=== PATIENT | male | born 1950 ===

== ENCOUNTER 2023-03-17 11:01 | Outpatient (AMB) | payer MEDICARE, SELFPAY ==
--- NOTE | 2023-03-17 11:34 | HO.NEPHOV ---
HPI HPI Comments History of Present Illness Details Renzo was seen in the office in follow-up of his chronic kidney disease and hypertension. His blood sugar control is better. He is not gaining any weight. He is on Farxiga. He had 2 episodes of pinkness in his ejaculate in a span of few weeks, few months ago. His blood pressure has been at goal. He denies any chest pain, shortness of breath, nausea, vomiting or diarrhea, proximal nocturnal dyspnea, orthopnea, pedal edema, headache, visual disturbance or orthostatic symptoms. His compliant with his medications. He is regularly followed up with his PCP. COUNT INCLUDES [facility] Medical History (Updated 03/17/23 @ 12:23 by Santi Gil MD) Essential (primary) hypertension Chronic kidney disease, stage 3a Surgical History (Updated 03/17/23 @ 11:43 by Graciela Sheppard MA) History of hernia repair Family History (Updated 03/17/23 @ 11:44 by Graciela Sheppard MA) Father Heart disease Brother Heart disease Sister Diabetes (Updated 03/17/23 @ 11:43 by Graciela Sheppard MA) Alcohol intake: current Patient Tobacco Use Status: Current someday Tobacco user Tobacco use type: Cigar Vital Signs 03/17/23 11:36 Height 5 ft 10 in Weight 232 lb 4 oz BMI 33.3 BP 110/78 Blood Pressure Location Lt brachial Position Sitting Pulse 62 Pulse Source Pulse Oximeter Physical Exam Vital Signs: Last Vital Signs Pulse 62 03/17/23 11:36 BP 110/78 03/17/23 11:36 BMI result Body Mass Index 33.3 Const General: comfortable and no acute distress Orientation/consciousness: patient oriented x3 HEENT Head: Yes normocephalic Mouth: Normal oral and palatal mucosa present Eyes EOM: EOMs intact bilaterally Neck Neck: Yes supple Resp Auscultation: clear to auscultation bilaterally Cardio Jugular venous distension: no JVD Rate: regular rate GI Palpation (GI): Soft to palpation Auscultation: normal bowel sounds General: Yes no CVA tenderness Back/Spine/Pelvis Back: no CVA tenderness Skin General skin exam: no rashes or lesions noted Neuro General: patient oriented x3 and moves all extremities Extrem General: Yes no pedal edema Assessment & Plan Assessment & Plan (1) Chronic kidney disease, stage 3a: Code(s): N18.31 - Chronic kidney disease, stage 3a (2) Essential (primary) hypertension: Code(s): I10 - Essential (primary) hypertension Plan Renzo has CKD for long time but his renal functions had been pretty stable. His blood pressure is at goal. His blood sugar is better controlled. He is on Farxiga. He had history of hyperkalemia which had been resolved. He tries to avoid nonsteroidal and anti-inflammatory medications. He tries to hydrate himself well. He most likely needs a urology consult. Lab studies were ordered. I did not make any medication changes today. All his questions and concerns were addressed. Time spend for documentation, retrieval of data and patient encounter 28 minutes. Orders: Orders Protein Creatinine Ratio, Ur 03/17/23 I10 - Essential (primary) hypertension, N18.31 - Chronic kidney disease, stage 3a UA and rflx microscopic 03/17/23 I10 - Essential (primary) hypertension, N18.31 - Chronic kidney disease, stage 3a Electrolytes 03/17/23 I10 - Essential (primary) hypertension, N18.31 - Chronic kidney disease, stage 3a Blood Urea Nitrogen 03/17/23 I10 - Essential (primary) hypertension, N18.31 - Chronic kidney disease, stage 3a Creatinine 03/17/23 I10 - Essential (primary) hypertension, N18.31 - Chronic kidney disease, stage 3a Calcium 03/17/23 I10 - Essential (primary) hypertension, N18.31 - Chronic kidney disease, stage 3a PSA, Ultra Sensitive 03/17/23 I10 - Essential (primary) hypertension, N18.31 - Chronic kidney disease, stage 3a Coding Level of Care Code Est Pt Level 4 (19505) Diagnoses Chronic kidney disease, stage 3a N18.31 Essential (primary) hypertension I10
[2023-03-17 11:36] VITALS: BP 110/78; PULSE 62; BMI 33.3
== END 2023-03-17 12:38 | disposition home or self-care (01) ==
PROVIDERS: PCP Internal Medicine; Visit Provider Internal Medicine Nephrology
DX: I12.9 Hypertensive chronic kidney disease with stage 1 through stage 4 chronic kidney disease, or unspecified chronic kidney disease (principal); N18.31 Chronic kidney disease, stage 3a; Z79.84 Long term (current) use of oral hypoglycemic drugs
CPT/HCPCS: 99214

== ENCOUNTER → 2023-03-17 11:01 | Outpatient (BNVA) | payer MEDICARE, SELFPAY | PROVIDERS: PCP Internal Medicine; Visit Provider Internal Medicine Nephrology | DX: I12.9 Hypertensive chronic kidney disease with stage 1 through stage 4 chronic kidney disease, or unspecified chronic kidney disease (principal); N18.31 Chronic kidney disease, stage 3a | CPT/HCPCS: 99212 ==

== ENCOUNTER 2023-05-05 10:20 | Outpatient (AMB) | payer MEDICARE, SELFPAY ==
[2023-05-05 10:34] VITALS: BP 126/80; PULSE 56; O2SAT 98; BMI 33.3
--- NOTE | 2023-05-05 10:34 | HO.NEPHOV_ITS ---
HPI HPI Comments History of Present Illness Details Renzo was seen in the office in follow-up of his chronic kidney disease and hypertension. His blood sugar control is better. He is not gaining any weight. He is on Farxiga. He had 2 episodes of pinkness in his ejaculate in a span of few weeks, few months ago. His blood pressure has been at goal. He denies any chest pain, shortness of breath, nausea, vomiting or diarrhea, proximal nocturnal dyspnea, orthopnea, pedal edema, headache, visual disturbance or orthostatic symptoms. His compliant with his medications. He is regularly followed up with his PCP [facility] Medical History (Updated 05/05/23 @ 14:54 by Santi Gil MD) Essential (primary) hypertension Chronic kidney disease, stage 3a Surgical History History of hernia repair Family History Father Heart disease Brother Heart disease Sister Diabetes Social History Alcohol intake: current Patient Tobacco Use Status: Current someday Tobacco user Tobacco use type: Cigar Vital Signs 05/05/23 10:34 Height 5 ft 10 in Weight 232 lb 2 oz BMI 33.3 BP 126/80 Blood Pressure Location Lt brachial Position Sitting Pulse 56 Pulse Source Pulse Oximeter Pulse Oximetry (%) 98 Oxygen Delivery Method Room Air Physical Exam Vital Signs: Last Vital Signs Pulse 56 05/05/23 10:34 BP 126/80 05/05/23 10:34 Pulse Ox 98 05/05/23 10:34 Oxygen Delivery Method Room Air 05/05/23 10:34 BMI result Body Mass Index 33.3 Const General: comfortable and no acute distress Orientation/consciousness: patient oriented x3 HEENT Head: Yes normocephalic Mouth: Normal oral and palatal mucosa present Eyes EOM: EOMs intact bilaterally Neck Neck: Yes supple Resp Auscultation: clear to auscultation bilaterally Cardio Jugular venous distension: no JVD Rate: regular rate GI Palpation (GI): Soft to palpation Auscultation: normal bowel sounds General: Yes no CVA tenderness Back/Spine/Pelvis Back: no CVA tenderness Skin General skin exam: no rashes or lesions noted Neuro General: patient oriented x3 and moves all extremities Extrem General: Yes no pedal edema Assessment & Plan Assessment & Plan (1) Chronic kidney disease, stage 3a: Code(s): N18.31 - Chronic kidney disease, stage 3a (2) Essential (primary) hypertension: Code(s): I10 - Essential (primary) hypertension (3) Blood in semen: Code(s): R36.1 - Hematospermia Plan Renzo has CKD for long time but his renal functions had been pretty stable. His blood pressure is at goal. His blood sugar is better controlled. He is on Farxiga. He had history of hyperkalemia which had been resolved. He tries to avoid nonsteroidal and anti-inflammatory medications. He tries to hydrate himself well. I took the liberty to order a urology consult. Lab studies were ordered. I did not make any medication changes today. All his questions and concerns were addressed. Orders: Orders Creatinine Today I10 - Essential (primary) hypertension, N18.31 - Chronic kidney disease, stage 3a Blood Urea Nitrogen Today I10 - Essential (primary) hypertension, N18.31 - Chronic kidney disease, stage 3a Electrolytes Today I10 - Essential (primary) hypertension, N18.31 - Chronic kidney disease, stage 3a Referrals Urology Referral R36.1 - Hematospermia Coding Level of Care Code Est Pt Level 3 (14335) Diagnoses Chronic kidney disease, stage 3a N18.31 Essential (primary) hypertension I10 Blood in semen R36.1 Results Reviewed Nephrology Results: No Data to Display
== END 2023-05-05 10:58 | disposition home or self-care (01) ==
PROVIDERS: PCP Internal Medicine; Visit Provider Internal Medicine Nephrology
DX: N18.31 Chronic kidney disease, stage 3a (principal); I10 Essential (primary) hypertension; R36.1 Hematospermia
CPT/HCPCS: 99213

== ENCOUNTER → 2023-05-05 10:20 | Outpatient (BNVA) | payer MEDICARE, SELFPAY | PROVIDERS: PCP Internal Medicine; Visit Provider Internal Medicine Nephrology | DX: I12.9 Hypertensive chronic kidney disease with stage 1 through stage 4 chronic kidney disease, or unspecified chronic kidney disease (principal); N18.31 Chronic kidney disease, stage 3a; R36.1 Hematospermia | CPT/HCPCS: 99212 ==

== ENCOUNTER 2023-07-22 10:07 | Outpatient (AMB) | payer MEDICARE, SELFPAY ==
--- NOTE | 2023-07-22 10:32 | A.OFFVIS_ITS ---
Intake Intake Visit Reasons: Hematospermia Intake Note: NEW Patient presents today to established treatment for hematospermia Meds- None Allergies to Antibiotic- No Known Allergies Blood Thinner- None Grain Receiver Required: No Accompanied by: Self / Same As Patient Allergies No Known Allergies Allergy (Verified 07/22/23 10:40) HPI HPI Comments History of Present Illness Details Hemanth is a pleasant male. He is a patient of . He is seen for the following urologic conditions - hematospermia Hematospermia occurred on 3 occasions Referred from Nephrology Urine noted 3+ glucose consistent with SGLT2 Discussed self-limiting nature of hematospermia Reassurance provided No voiding symptoms described [facility] Medical History Essential (primary) hypertension Chronic kidney disease, stage 3a Surgical History History of hernia repair Family History Father Heart disease Brother Heart disease Sister Diabetes Social History Alcohol intake: current Patient Tobacco Use Status: Current someday Tobacco user Tobacco use type: Cigar Review of Systems Const Denies chills and Denies fever(s) Card Reports no additional complaints and Denies syncope Resp Denies cough GI Denies abdominal pain and Denies heartburn Reports as per HPI and Denies change in libido Neuro Denies syncope Psych Denies change in libido Endo Denies change in libido Physical Exam Const General: cooperative, healthy appearing, comfortable and no acute distress Orientation/consciousness: patient oriented x3 HEENT Face and sinus: Yes normal facial exam Mouth: moist mucous membranes Neck Neck: Yes normal visual inspection, Yes full ROM and Yes trachea midline Chest Chest palpation & inspection: normal inspection of the chest Resp Effort & Inspection: normal respiratory effort, able to speak in complete sentences and no respiratory distress GI Inspection: Yes normal to inspection Back/Spine/Pelvis Cervical Spine: normal cervical lordosis Thoracic/Lumbar Spine: thoracic and lumbar spine normal to inspection Skin General skin exam: no rashes or lesions noted Neuro General: patient oriented x3, gait normal, tone normal and moves all extremities Extrem General: Yes normal to inspection and Yes capillary refill normal Assessment & Plan Assessment & Plan (1) Blood in semen: Code(s): R36.1 - Hematospermia Plan Reassurance provided Patient Instructions: Imaging studies, laboratory and physical exam results were discussed and reviewe d in detail. No major barriers to patient understanding were identified. An opportunity to ask questions regarding the treatment plan was provided. All questions were answered. The patient expressed understanding and agreement with the above treatment plan. The patient is aware they should contact our office by phone for worsening of their current condition or the appearance of new urologic symptoms. Compliance is encouraged with any medications and followup testing that is ordered. It is a privilege to participate in the urologic care of your patient. If you have any questions or concerns regarding treatment for the above conditions, or other urologic issues, please do not hesitate to contact me. The office telephone contact is [phone]. This note is constructed using voice recognition software. While every effort has been made to ensure accuracy supervisor endless track vehicle errors may have been included. Yours sincerely, Dr Magdiel Isaac MD, [facility] - Urology Providers of Expert, Compassionate Care for the Genitourinary System Coding Level of Care Code New Pt Level 3 (26590) Diagnoses Blood in semen R36.1
== END 2023-07-22 11:21 | disposition home or self-care (01) ==
PROVIDERS: PCP Internal Medicine; Visit Provider Urology
DX: R36.1 Hematospermia (principal)
CPT/HCPCS: 99203

== ENCOUNTER → 2023-07-22 10:07 | Outpatient (BNVA) | payer MEDICARE, SELFPAY | PROVIDERS: PCP Internal Medicine; Visit Provider Urology | DX: R36.1 Hematospermia (principal) | CPT/HCPCS: 99202 ==

== ENCOUNTER 2023-11-10 10:00 | Outpatient (AMB) | payer MEDICARE, SELFPAY ==
[2023-11-10 10:31] VITALS: BP 102/62; PULSE 64; O2SAT 94; BMI 32.6
--- NOTE | 2023-11-10 10:31 | HO.NEPHOV_ITS ---
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 His blood sugar control is better. He is on Farxiga. He has had 2 episodes of pinkness in his ejaculate in a span of few weeks, few months ago. His blood pressure has been at goal. He denies any chest pain, shortness of breath, nausea, vomiting or diarrhea, proximal nocturnal dyspnea, orthopnea, pedal edema, headache, visual disturbance or orthostatic symptoms. His compliant with his medications. He is regularly followed up with his PCP [facility] Medical History Essential (primary) hypertension Chronic kidney disease, stage 3a Surgical History History of hernia repair Family History Father Heart disease Brother Heart disease Sister Diabetes Social History Alcohol intake: current Patient Tobacco Use Status: Current someday Tobacco user Tobacco use type: Cigar Physical Exam Vital Signs: Last Vital Signs Pulse 64 11/10/23 10:31 BP 102/62 11/10/23 10:31 Pulse Ox 94 11/10/23 10:31 Oxygen Delivery Method Room Air 11/10/23 10:31 BMI result Body Mass Index 32.6 Const General: comfortable and no acute distress Orientation/consciousness: patient oriented x3 HEENT Head: Yes normocephalic Mouth: Normal oral and palatal mucosa present Eyes EOM: EOMs intact bilaterally Neck Neck: Yes supple Resp Auscultation: clear to auscultation bilaterally Cardio Jugular venous distension: no JVD Rate: regular rate GI Palpation (GI): Soft to palpation Auscultation: normal bowel sounds General: Yes no CVA tenderness Back/Spine/Pelvis Back: no CVA tenderness Skin General skin exam: no rashes or lesions noted Neuro General: patient oriented x3 and moves all extremities Extrem General: Yes no pedal edema Results Reviewed Nephrology Results: No Data to Display Assessment & Plan Assessment & Plan (1) Chronic kidney disease, stage 3a: Code(s): N18.31 - Chronic kidney disease, stage 3a Category: Medical (2) Essential (primary) hypertension: Code(s): I10 - Essential (primary) hypertension Category: Medical Plan Renzo has CKD for long time but his renal functions had been pretty stable. His blood pressure is at goal. His blood sugar is better controlled. He is on Farxiga. He had history of hyperkalemia which had been resolved. He tries to avoid nonsteroidal and anti-inflammatory medications. He tries to hydrate himself well. I discontinued HCTZ. I may cut back on losartan at next visit.( serum creatinine marginally gone up). Lab studies were ordered. I did not make any other medication changes today. All his questions and concerns were addressed. Orders: Orders Blood Urea Nitrogen Today I10 - Essential (primary) hypertension, N18.31 - Chronic kidney disease, stage 3a Electrolytes Today I10 - Essential (primary) hypertension, N18.31 - Chronic kidney disease, stage 3a Creatinine Today I10 - Essential (primary) hypertension, N18.31 - Chronic kidney disease, stage 3a Coding Level of Care Code Est Pt Level 4 (22948) Diagnoses Chronic kidney disease, stage 3a N18.31 Essential (primary) hypertension I10
== END 2023-11-10 10:55 | disposition home or self-care (01) ==
PROVIDERS: PCP Internal Medicine; Visit Provider Internal Medicine Nephrology
DX: N18.31 Chronic kidney disease, stage 3a (principal); I10 Essential (primary) hypertension
CPT/HCPCS: 99214

== ENCOUNTER → 2023-11-10 10:00 | Outpatient (BNVA) | payer MEDICARE, SELFPAY | PROVIDERS: PCP Internal Medicine; Visit Provider Internal Medicine Nephrology | DX: I12.9 Hypertensive chronic kidney disease with stage 1 through stage 4 chronic kidney disease, or unspecified chronic kidney disease (principal); N18.31 Chronic kidney disease, stage 3a | CPT/HCPCS: 99212 ==

== ENCOUNTER 2024-01-07 14:03 | Outpatient (AMB) | payer MEDICARE, SELFPAY ==
--- NOTE | 2024-01-07 14:05 | HO.NEPHOV_ITS ---
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 His blood sugar control is better. His blood pressure has been at goal but on the lower side after he lost a lot of weight. He denies any chest pain, shortness of breath, nausea, vomiting or diarrhea, proximal nocturnal dyspnea, orthopnea, pedal edema, headache, visual disturbance or orthostatic symptoms. His compliant with his medications. He is regularly followed up with his PCP [facility] Medical History Essential (primary) hypertension Chronic kidney disease, stage 3a Surgical History History of hernia repair Family History Father Heart disease Brother Heart disease Sister Diabetes Social History Alcohol intake: current Patient Tobacco Use Status: Current someday Tobacco user Tobacco use type: Cigar Review of Systems Const All systems reviewed & are unremarkable except as noted in HPI and below Physical Exam Vital Signs: Last Vital Signs Pulse 77 01/07/24 14:09 BP 94/50 L 01/07/24 14:09 Pulse Ox 97 01/07/24 14:09 Oxygen Delivery Method Room Air 01/07/24 14:09 BMI result Body Mass Index 30.7 Const General: comfortable and no acute distress Orientation/consciousness: patient oriented x3 HEENT Head: Yes normocephalic Mouth: Normal oral and palatal mucosa present Eyes EOM: EOMs intact bilaterally Neck Neck: Yes supple Resp Auscultation: clear to auscultation bilaterally Cardio Jugular venous distension: no JVD Rate: regular rate GI Palpation (GI): Soft to palpation Auscultation: normal bowel sounds General: Yes no CVA tenderness Back/Spine/Pelvis Back: no CVA tenderness Skin General skin exam: no rashes or lesions noted Neuro General: patient oriented x3 and moves all extremities Extrem General: Yes no pedal edema Results Reviewed Nephrology Results: No Data to Display Assessment & Plan Assessment & Plan (1) Chronic kidney disease, stage 3a: Code(s): N18.31 - Chronic kidney disease, stage 3a Category: Medical (2) Essential (primary) hypertension: Code(s): I10 - Essential (primary) hypertension Category: Medical Plan Renzo has CKD for long time but his renal functions had been pretty stable. His blood pressure is at goal. His blood sugar is better controlled. He is on Farxiga. He had history of hyperkalemia which had been resolved. He tries to avoid nonsteroidal and anti-inflammatory medications. He tries to hydrate himself well. I discontinued his Amlodipine today but can resume at 5 mg if BP goes up again. Lab studies were ordered. I did not make any other medication changes today. All his questions and concerns were addressed. Coding Level of Care Code Est Pt Level 4 (52061) Diagnoses Chronic kidney disease, stage 3a N18.31 Essential (primary) hypertension I10
[2024-01-07 14:09] VITALS: BP 94/50; PULSE 77; O2SAT 97; BMI 30.7
== END 2024-01-07 14:38 | disposition home or self-care (01) ==
PROVIDERS: PCP Internal Medicine; Visit Provider Internal Medicine Nephrology
DX: N18.31 Chronic kidney disease, stage 3a (principal); I10 Essential (primary) hypertension
CPT/HCPCS: 99214

== ENCOUNTER → 2024-01-07 14:03 | Outpatient (BNVA) | payer MEDICARE, SELFPAY | PROVIDERS: PCP Internal Medicine; Visit Provider Internal Medicine Nephrology | DX: I12.9 Hypertensive chronic kidney disease with stage 1 through stage 4 chronic kidney disease, or unspecified chronic kidney disease (principal); N18.31 Chronic kidney disease, stage 3a | CPT/HCPCS: 99212 ==

== ENCOUNTER 2024-03-10 10:17 | Outpatient (AMB) | payer MEDICARE, SELFPAY ==
--- NOTE | 2024-03-10 10:22 | HO.NEPHOV ---
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 His blood sugar control is better. His blood pressure has been at goal but on the lower side after he lost a lot of weight. He denies any chest pain, shortness of breath, nausea, vomiting or diarrhea, proximal nocturnal dyspnea, orthopnea, pedal edema, headache, visual disturbance or orthostatic symptoms. His compliant with his medications. He is regularly followed up with his PCP [facility] Medical History Essential (primary) hypertension Chronic kidney disease, stage 3a Surgical History History of hernia repair Family History Father Heart disease Brother Heart disease Sister Diabetes Social History Alcohol intake: current Patient Tobacco Use Status: Current someday Tobacco user Tobacco use type: Cigar Review of Systems Const All systems reviewed & are unremarkable except as noted in HPI and below Physical Exam Vital Signs: Last Vital Signs Pulse 67 03/10/24 10:24 BP 132/70 03/10/24 10:24 Pulse Ox 97 03/10/24 10:24 Oxygen Delivery Method Room Air 03/10/24 10:24 BMI result Body Mass Index 29.8 Const General: comfortable and no acute distress Orientation/consciousness: patient oriented x3 HEENT Head: Yes normocephalic Mouth: Normal oral and palatal mucosa present Eyes EOM: EOMs intact bilaterally Neck Neck: Yes supple Resp Auscultation: clear to auscultation bilaterally Cardio Jugular venous distension: no JVD Rate: regular rate GI Palpation (GI): Soft to palpation Auscultation: normal bowel sounds General: Yes no CVA tenderness Back/Spine/Pelvis Back: no CVA tenderness Skin General skin exam: no rashes or lesions noted Neuro General: patient oriented x3 and moves all extremities Extrem General: Yes no pedal edema Results Reviewed Nephrology Results: No Data to Display Assessment & Plan Assessment & Plan (1) Chronic kidney disease, stage 3a: Code(s): N18.31 - Chronic kidney disease, stage 3a Category: Medical (2) Essential (primary) hypertension: Code(s): I10 - Essential (primary) hypertension Category: Medical Plan Renzo has CKD for long time but his renal functions had been pretty stable. His blood pressure is at goal. His blood sugar is better controlled. He is on Farxiga and Mounjaro . He had history of hyperkalemia which had been resolved. He tries to avoid nonsteroidal and anti-inflammatory medications. He tries to hydrate himself well. I did not make any other medication changes today. All his questions and concerns were addressed Orders: Orders Electrolytes 6 Months I10 - Essential (primary) hypertension, N18.31 - Chronic kidney disease, stage 3a Creatinine 6 Months I10 - Essential (primary) hypertension, N18.31 - Chronic kidney disease, stage 3a Blood Urea Nitrogen 6 Months I10 - Essential (primary) hypertension, N18.31 - Chronic kidney disease, stage 3a Protein Creatinine Ratio, Ur 6 Months I10 - Essential (primary) hypertension, N18.31 - Chronic kidney disease, stage 3a Coding Level of Care Code Est Pt Level 4 (10955) Diagnoses Chronic kidney disease, stage 3a N18.31 Essential (primary) hypertension I10
[2024-03-10 10:24] VITALS: BP 132/70; PULSE 67; O2SAT 97; BMI 29.8
== END 2024-03-10 11:01 | disposition home or self-care (01) ==
PROVIDERS: PCP Internal Medicine; Visit Provider Internal Medicine Nephrology
DX: I12.9 Hypertensive chronic kidney disease with stage 1 through stage 4 chronic kidney disease, or unspecified chronic kidney disease (principal); N18.31 Chronic kidney disease, stage 3a
CPT/HCPCS: 99214

== ENCOUNTER → 2024-03-10 10:17 | Outpatient (BNVA) | payer MEDICARE, SELFPAY | PROVIDERS: PCP Internal Medicine; Visit Provider Internal Medicine Nephrology | DX: I12.9 Hypertensive chronic kidney disease with stage 1 through stage 4 chronic kidney disease, or unspecified chronic kidney disease (principal); N18.31 Chronic kidney disease, stage 3a | CPT/HCPCS: 99212 ==

== ENCOUNTER 2024-09-08 09:12 | Outpatient (AMB) | payer MEDICARE, SELFPAY ==
--- NOTE | 2024-09-08 09:24 | HO.NEPHOV ---
Vital Signs 09/08/24 09:26 Height 5 ft 10 in Weight 203 lb 2 oz BMI 29.1 BP 126/68 Blood Pressure Location Lt brachial Position Sitting Pulse 68 Pulse Source Pulse Oximeter Pulse Oximetry (%) 98 Oxygen Delivery Method Room Air Intake Visit Reasons: 6mon follow up w/labs-Conf Cutter Head Sharpener Required: No Accompanied by: Self / Same As Patient Allergies No Known Allergies Allergy (Verified 09/08/24 09:26) HPI Comments Details: Renzo was seen in the office in follow-up of his chronic kidney disease and hypertension. His blood sugar control is better. His blood pressure has been at goal but on the lower side after he lost a lot of weight. He denies any chest pain, shortness of breath, nausea, vomiting or diarrhea, proximal nocturnal dyspnea, orthopnea, pedal edema, headache, visual disturbance or orthostatic symptoms. His compliant with his medications. He is regularly followed up with his PCP [facility] Medical History Essential (primary) hypertension Chronic kidney disease, stage 3a Surgical History History of hernia repair Family History Father Heart disease Brother Heart disease Sister Diabetes Social History Alcohol intake: current Patient Tobacco Use Status: Current someday Tobacco user Tobacco use type: Cigar Review of Systems Const All systems reviewed & are unremarkable except as noted in HPI and below Physical Exam Vital Signs: Last Vital Signs Pulse 68 09/08/24 09:26 BP 126/68 09/08/24 09:26 Pulse Ox 98 09/08/24 09:26 Oxygen Delivery Method Room Air 09/08/24 09:26 BMI result Body Mass Index 29.1 Const General: comfortable and no acute distress Orientation/consciousness: patient oriented x3 HEENT Head: Yes normocephalic Mouth: Normal oral and palatal mucosa present Eyes EOM: EOMs intact bilaterally Neck Neck: Yes supple Resp Auscultation: clear to auscultation bilaterally Cardio Jugular venous distension: no JVD Rate: regular rate GI Palpation (GI): Soft to palpation Auscultation: normal bowel sounds General: Yes no CVA tenderness Back/Spine/Pelvis Back: no CVA tenderness Skin General skin exam: no rashes or lesions noted Neuro General: patient oriented x3 and moves all extremities Extrem General: Yes no pedal edema Results Reviewed Nephrology Results: No Data to Display Assessment & Plan Assessment & Plan (1) Chronic kidney disease, stage 3a: Code(s): N18.31 - Chronic kidney disease, stage 3a Category: Medical (2) Essential (primary) hypertension: Code(s): I10 - Essential (primary) hypertension Category: Medical Plan Renzo has CKD for long time but his renal functions had been pretty stable. His blood pressure is at goal. His blood sugar is better controlled. He is on Farxiga and Mounjaro . He had history of hyperkalemia which had been resolved. He tries to avoid nonsteroidal and anti-inflammatory medications. He tries to hydrate himself well. I did not make any other medication changes today. All his questions and concerns were addressed Orders: Orders Blood Urea Nitrogen 6 Months I10 - Essential (primary) hypertension, N18.31 - Chronic kidney disease, stage 3a Parathyroid Hormone Intact 6 Months I10 - Essential (primary) hypertension, N18.31 - Chronic kidney disease, stage 3a Vitamin D 25-OH Total 6 Months I10 - Essential (primary) hypertension, N18.31 - Chronic kidney disease, stage 3a Creatinine 6 Months I10 - Essential (primary) hypertension, N18.31 - Chronic kidney disease, stage 3a Electrolytes 6 Months I10 - Essential (primary) hypertension, N18.31 - Chronic kidney disease, stage 3a Calcium 6 Months I10 - Essential (primary) hypertension, N18.31 - Chronic kidney disease, stage 3a Phosphorus 6 Months I10 - Essential (primary) hypertension, N18.31 - Chronic kidney disease, stage 3a Hemoglobin A1c 6 Months I10 - Essential (primary) hypertension, N18.31 - Chronic kidney disease, stage 3a Coding Level of Care Code Est Pt Level 4 (83655) Diagnoses Chronic kidney disease, stage 3a N18.31 Essential (primary) hypertension I10
[2024-09-08 09:26] VITALS: BP 126/68; PULSE 68; O2SAT 98; BMI 29.1
--- OUTSIDE RECORDS SUMMARY | 2024-09-08 09:26 | XMS_ITS | Clinical Summary ---
Author Organization [facility] Address [address] [place] [address] Phone Care Team Providers Care Evs Attendant Name Role Phone Lizbeth Rivers MD Primary Care Provider Allergies No known active allergies Medications amLODIPine (NORVASC) 10 MG tablet Take 1 tablet by mouth 1 (one) time each day 04/25/2015 Active aspirin (ST JENI) 81 MG EC tablet Take 1 tablet by mouth 1 (one) time each day Active atorvastatin (LIPITOR) 20 MG tablet Take 1 tablet by mouth at bed time Active glipiZIDE (GLUCOTROL) 5 MG tablet Take 1 tablet by mouth 1 (one) time each day Active metoprolol tartrate (LOPRESSOR) 25 MG tablet Take 1 tablet by mouth 2 (two) times a day Active metFORMIN (GLUCOPHAGE) 1000 MG tablet Take 1,000 mg by mouth in the morning and 1,000 mg in the evening. 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 Stage 3a chronic kidney disease 10/02/2020 Hypertension 10/02/2020 Sudden idiopathic hearing loss of right ear 06/2017 Family History Medical History Relation Comments Heart disease Father Hypertension Father Relation Status Comments Father Mother Alive Social History Tobacco Use Types Packs/Day Years Used Date Smoking Tobacco: Former Smokeless Tobacco: Never Tobacco Cessation:Counseling Given: Not Answered Comments:Smoking History Info:Every day Alcohol Use Standard Drinks/Week Comments Yes 0 (1 standard drink = 0.6 oz pure alcohol) Alcoholic Drinks/day: Occasional social drink Sex and Gender Information Value Date Recorded Sex Assigned at Not on file Legal Sex Male 5:03 PM EST Gender Identity Not on file Sexual Orientation Not on file Last Filed Vital Signs Vital Sign Reading Time Taken Comments Blood Pressure 126/60 10/07/2022 1:51 PM EDT Pulse 67 10/07/2022 1:51 PM EDT Temperature - - Respiratory Rate - - Oxygen Saturation 98% 04/09/2021 1:03 PM EST Inhaled Oxygen Concentration - - Weight 112 kg (247 lb 12.8 oz) 02/25/2022 1:12 P M EDT Height 177.8 cm (5' 10 ) 01/10/2020 12:00 PM EDT Body Mass Index 35.56 01/10/2020 12:00 PM EDT Plan of Treatment Health Maintenance Due Date Last Done Comments Pneumococcal Vaccine: 50+ Ye ars (1 of 2 - PCV) 07/23/1967 Influenza Vaccine (Season Ended) 2024 Colorectal Cancer Screening: Colonoscopy Discontinued 09/20/2018 Hepatitis B Vaccine Aged Out No longe r eligible based on patient's age to complete this topic Insurance [facility] Medicare Care Teams Evs Attendant Relationship Specialty Start Date End Date Lizbeth Rivers MD [facility] PCP - General Internal Medicine 02/25/22
--- OUTSIDE RECORDS SUMMARY | 2024-09-08 09:26 | XMS_ITS | Clinical Summary ---
Author Organization [facility] Address [facility] [place] [address] Care Team Providers Care Laser Printing Operator Name Role Phone Colin Morgan Primary Care Provider [phone] Allergies No known active allergies Medications Medication Sig Dispensed Refills Start Date End Date Status amLODIPine (NORVASC) 10 mg Tablet 09/07/2017 Active atorvastatin (LIPITOR) 20 mg Tablet 09/07/2017 Active fenofibrate (TRICOR) 54 mg Tablet 09/07/2017 Active glipiZIDE (GLUCOTROL) 10 mg Tablet 09/07/2017 Active LANTUS SOLOSTAR U-100 INSULIN pen 11/01/2017 Active losartan (COZAAR) 50 mg Tablet 09/09/2017 Active metoprolol tartrate (LOPRESSOR) 25 mg Tablet 11/22/2017 Active olopatadine (PATANOL) 0.1 % Drops 08/02/2017 Active pioglitazone (ACTOS) 45 mg Tablet 09/08/2017 Active predniSONE (DELTASONE) 20 mg Tablet 3 PO daily for 7 days, then 2 for 2 days, then 1 for 2 days, then 1/2 for 2 days 28 tablet 11/26/2017 Active Active Problems Problem Noted Date Diagnosed Date Sudden idiopathic hearing loss of right ear 06/2017 Social History Tobacco Use Types Packs/Day Years Used Date Smoking Tobacco: Some Days Smokeless Tobacco: Never Comments:cigars Sex and Gender Information Value Date Recorded Sex Assigned at Not on file Gender Identity Not on file Sexual Orientation Not on file Last Filed Vital Signs Vital Sign Reading Time Taken Comments Blood Pressure 126/80 12/15/2017 8:26 AM EDT Pulse 59 12/15/2017 8:26 AM EDT Temperature 36.6 ??C (97.8 ??F) 11/26/2017 5:01 PM ED T Respiratory Rate - - Oxygen Saturation 99% 12/15/2017 8:26 AM EDT Inhaled Oxygen Concentration - - Weight 119.3 kg (263 lb) 11/26/2017 5:01 PM EDT Height 177.8 cm (5' 10 ) 11/26/2017 5:01 PM EDT Body Mass Index 37.74 11/26/2017 5:01 PM EDT Plan of Treatment Health Maintenance Due Date Last Done Comments CT Colonography 1948 Colonoscopy 1948 Colorectal Cancer Screening 1948 FIT DNA 1948 FIT 1948 Sigmoidoscopy (10 year) with FIT yearly 1948 Sigmoidoscopy 1948 Hepatitis C Screening 1966 Tetanus/Diphtheria/Pertussis Vaccines (1 - Tdap) 07/22 Pneumoccocal Vaccine: 50+ (1 of 1 - PCV) 1998 Zoster vaccine (1 of 2) 1998 Advance Directive 07/23/2003 AAA Screen 2013 RSV Vaccine (1 - 1-dose 75+ series) 07/23/2023 Covid-19 Vaccine (1 - 2023- season) 2023 Influenza (Flu) vaccine (1 o f 1 - Influenza standard series) 12/26/2023 Care Teams Laser Printing Operator Relationship Specialty Start Date End Date Colin Morgan DO [address] [facility] [place] [address] PCP - General Family Medicine 11/26/17
--- OUTSIDE RECORDS SUMMARY | 2024-09-08 09:26 | XMS_ITS | Continuity of Care Document ---
Author Organization [facility] [address] [facility] [place] [address] Phone [phone] Care Team Providers Care Light Cleaner Name Role Phone Lizbeth Rivers Care Team Information Physician [facility] [phone] Problems Active Problems Provider Date Type 2 diabetes mellitus Chucky Kingsley M.D. Onset: 01/22/2022 Essential hypertension Chucky Kingsley M.D. O nset: 01/22/2022 Hyperlipidemia Chucky Kingsley M.D. Onset: 0 01/22/2022 Chronic kidney disease Chucky Kingsley M.D. O nset: 01/22/2022 Social History Type Date Description Comments Sex Unknown Tobacco Use Start: Unknown Light tobacco sm oker (10 or fewer cigarettes/day) Smoking Status Reviewed: 11/05/22 Light tobacco smoker (10 or fewer cigarettes/day) ETOH Use Drinks 2 Alcoholic Beverages Per Week Allergies and adverse reactions Description No Known Drug Allergies Medications Active Medications SIG Qnty Indications Order ing Provider Date Losartan Immznohef687do Tablets take 1 tablet by mouth every day Chucky Kingsley M.D. 11/10/2023 Qmjaelh03ot Tablets 1 by mouth every day 90tabs Chucky Kingsley M.D. 08/05/2022 Lantus Ukglffij555Zaby/ML Solution Pen-Inject Inject 12 Units Under The Skin AT Bedtime Adlakha, Lizbeth Amlodipine Vjluslkc94vc Tablets Take 1 Tablet By Mouth Every Day Adlakha, Lizbeth Atorvastatin Ppqzszb51pe Tablets Take 1 Tablet By Mouth Daily Adlakha, Lizbeth Metoprolol Qztjyvvi81qi Tablets Take 1 Tablet By Mouth Twice Daily Adlakha, Lizbeth Xcctdudjie242uk Capsules Take 1 Capsule By Mouth Three Times Daily as Needed Adlakha, Lizbeth Onetouch VerioStrips Use To Check Blood Sugar Twice Daily 100units E11.9 Chucky Kingsley M.D. Clonazepam0.5mg Tablets Take 1 Tablet By Mouth Twice Daily as Needed For Anxiety Unknown Kehnwdgl6vv/0.5ML Solution Pen-Inject 1 injection every week as directed Unknown Vital Signs Date Vital Result Comment 06/01/2024 9:44am BP Systolic 120 mmHg BP Diastolic 70 mmHg Heart Rate 72 /min Height 70 inches 5'10 Weight 201.38 lb BMI (Body Mass Index) 28.9 kg/m2 Results Test Acquired Date Facility Test Result H/L Range N ote Hemoglobin A1c 06/01/2024 Inhouse Hemoglobin A1c 5.5% Glucose Fingerstick 06/01/2024 Inhouse Glucose Fingerstick 129 Glucose Fingerstick 02/24/2024 Inhouse Glucose Fingerstick 113 Hemoglobin A1c 02/24/2024 Inhouse Hemoglobin A1c 5.5 Hemoglobin A1c 11/10/2023 Inhouse Hemoglobin A1c 6.3% Glucose Fingerstick 11/10/2023 Inhouse Glucose Fingerstick 217 Hemoglobin A1c 08/02/2023 Inhouse Hemoglobin A1c 7.3% Glucose Fingerstick 08/02/2023 Inhouse Glucose Fingerstick 136 Hemoglobin A1c 04/02/2023 Inhouse Hemoglobin A1c 6.7% Glucose Fingerstick 04/02/2023 Inhouse Glucose Fingerstick 126 Hemoglobin A1c 11/05/2022 Inhouse Hemoglobin A1c 6.6% Glucose Fingerstick 11/05/2022 Inhouse Glucose Fingerstick 141 Hemoglobin A1c 08/05/2022 Inhouse Hemoglobin A1c 6.6% Glucose Fingerstick 08/05/2022 Inhouse Glucose Fingerstick 109 Hemoglobin A1c 05/04/2022 Inhouse Hemoglobin A1c 6.9% Glucose Fingerstick 05/04/2022 Inhouse Glucose Fingerstick 127 Glucose Fingerstick 01/22/2022 Inhouse Glucose Fingerstick 107 Medical Devices Description No Information Available Encounters Type Date Location Provider Dx Diagnosis Office Visit 06/01/2024 10:00a Main Office Chucky Kingsley M.D. E11.8 Type 2 diabetes mellitus with unspecified complications N18.9 Chronic kidney disea se, unspecified I10 Essential (primary) hypertension Assessments Date Code Description Provider 06/01/2024 E11.8 Complication due to diabetes mellitus Chucky Kingsley M.D. 06/01/2024 N18.9 Chronic kidney disease Chucky Kingsley M.D. 06/01/2024 I10 Hypertensive disorder Chucky ocampo M.D. Plan of Treatment Future Appointment(s):* 10/18/2024 10:00 am - Chucky Kingsley M.D. at Main Office 06/01/2024 - Chucky Kingsley M.D.* E11.8 Complication due to diabetes mellitus * N18.9 Chronic kidney disease * I10 Hypertensive disorder Functional Status Description No Information Available Mental Status Description No Information Available Referrals Description No Information Available
== END 2024-09-08 09:57 | disposition home or self-care (01) ==
LOC: HO.HKA 09:13
PROVIDERS: PCP Internal Medicine; Visit Provider Internal Medicine Nephrology
DX: N18.31 Chronic kidney disease, stage 3a (principal); I10 Essential (primary) hypertension
CPT/HCPCS: 99214

== ENCOUNTER → 2024-09-08 09:12 | Outpatient (BNVA) | payer MEDICARE, SELFPAY | PROVIDERS: PCP Internal Medicine; Visit Provider Internal Medicine Nephrology | DX: I12.9 Hypertensive chronic kidney disease with stage 1 through stage 4 chronic kidney disease, or unspecified chronic kidney disease (principal); N18.31 Chronic kidney disease, stage 3a | CPT/HCPCS: 99212 ==

== ENCOUNTER 2025-03-21 09:25 | Outpatient (AMB) | payer MEDICARE, SELFPAY ==
--- NOTE | 2025-03-21 09:26 | HO.NEPHOV_ITS ---
Vital Signs 03/21/25 09:46 Height 5 ft 10 in Weight 222 lb 6 oz BMI 31.9 BP 114/72 Blood Pressure Location Lt brachial Position Sitting Pulse 68 Pulse Source Pulse Oximeter Pulse Oximetry (%) 95 Oxygen Delivery Method Room Air Intake Visit Reasons: 6 MO FU-[facility] Broadcast Operations Engineer Required: No Accompanied by: Self / Same As Patient Allergies No Known Allergies Allergy (Verified 03/21/25 09:46) HPI Comments Details: Renzo was seen in the office in follow-up of his chronic kidney disease and hypertension. His blood sugar control is better. His blood pressure has been at goal but on the lower side after he lost a lot of weight. He denies any chest pain, shortness of breath, nausea, vomiting or diarrhea, proximal nocturnal dyspnea, orthopnea, pedal edema, headache, visual disturbance or orthostatic symptoms. His compliant with his medications. He is regularly followed up with his PCP [facility] Medical History Essential (primary) hypertension Chronic kidney disease, stage 3a Surgical History History of hernia repair Family History Father Heart disease Brother Heart disease Sister Diabetes Social History Alcohol intake: current Patient Tobacco Use Status: Current someday Tobacco user Tobacco use type: Cigar Review of Systems Const All systems reviewed & are unremarkable except as noted in HPI and below Physical Exam Vital Signs: Last Vital Signs Pulse 68 03/21/25 09:46 BP 114/72 03/21/25 09:46 Pulse Ox 95 03/21/25 09:46 Oxygen Delivery Method Room Air 03/21/25 09:46 BMI result Body Mass Index 31.9 Const General: comfortable and no acute distress Orientation/consciousness: patient oriented x3 HEENT Head: Yes normocephalic Mouth: Normal oral and palatal mucosa present Eyes EOM: EOMs intact bilaterally Neck Neck: Yes supple Resp Auscultation: clear to auscultation bilaterally Cardio Jugular venous distension: no JVD Rate: regular rate GI Palpation (GI): Soft to palpation Auscultation: normal bowel sounds General: Yes no CVA tenderness Back/Spine/Pelvis Back: no CVA tenderness Skin General skin exam: no rashes or lesions noted Neuro General: patient oriented x3 and moves all extremities Extrem General: Yes no pedal edema Assessment & Plan Assessment & Plan (1) Chronic kidney disease, stage 3a: Code(s): N18.31 - Chronic kidney disease, stage 3a Category: Medical (2) Essential (primary) hypertension: Code(s): I10 - Essential (primary) hypertension Category: Medical Plan Renzo has CKD for long time but his renal functions had been pretty stable. His blood pressure is at goal. His blood sugar is better controlled. He is on Farxiga and Mounjaro . He had history of hyperkalemia which had been resolved. He tries to avoid nonsteroidal and anti-inflammatory medications. He tries to hydrate himself well. I did not make any other medication changes today. All his questions and concerns were addressed Orders: Orders Electrolytes 4 Months I10 - Essential (primary) hypertension, N18.31 - Chronic kidney disease, stage 3a Blood Urea Nitrogen 4 Months I10 - Essential (primary) hypertension, N18.31 - Chronic kidney disease, stage 3a Creatinine 4 Months I10 - Essential (primary) hypertension, N18.31 - Chronic kidney disease, stage 3a Coding Level of Care Code Est Pt Level 4 (87983) Diagnoses Chronic kidney disease, stage 3a N18.31 Essential (primary) hypertension I10
[2025-03-21 09:46] VITALS: BP 114/72; PULSE 68; O2SAT 95; BMI 31.9
--- OUTSIDE RECORDS SUMMARY | 2025-03-21 10:30 | XMS_ITS | Continuity of Care Document ---
Author Organization [facility] [address] [place] [address] Phone [phone] Care Team Providers Care Philatelic Consultant Name Role Phone Lizbeth Rivers Care Team Information Financial Institution Branch Manager [phone] Problems Active Problems Provider Date Type 2 diabetes mellitus Chucky Kingsley M.D. Onset: 01/22/2022 Essential hypertension Chucky Kingsley M.D. O nset: 01/22/2022 Hyperlipidemia Chucky Kingsley M.D. Onset: 0 01/22/2022 Chronic kidney disease Chucky Kingsley M.D. O nset: 01/22/2022 Social History Type Date Description Comments Sex Male Sex Unknown Tobacco Use Start: Unknown Light tobacco smoker (10 o r fewer cigarettes/day) ETOH Use Drinks 2 Alcoholic Beverages Per Week Allergies and adverse reactions Description No Known Drug Allergies Medications Active Medications SIG Qnty Indications Order ing Provider Date Mounjaro7.5mg/0.5ML Solution Auto-Inject 1 injection every week as directed 6ml Chucky Kingsley M.D. 10/19/2024 Sbtilmu55uc Tablets 1 by mouth every day 90tabs Chucky Kingsley M.D. 08/05/2022 Lantus Ibzawrdj338Hjko/ML Solution Pen-Inject Inject 20 Units AT Bedtime Adlakha, Lizbeth Amlodipine Cwihstvi69yz Tablets Take 1 Tablet By Mouth Every Day Adlakha, Lizbeth Atorvastatin Ekhshmn70rl Tablets Take 1 Tablet By Mouth Daily Adlakha, Lizbeth Metoprolol Isckawlx92zu Tablets Take 1 Tablet By Mouth Twice Daily Adlakha, Lizbeth Onetouch VerioStrips Use To Check Blood Sugar Twice Daily 100units E11.9 Chucky Kingsley M.D. Vital Signs Date Vital Result Comment 03/07/2025 10:35am BP Systolic 140 mmHg BP Diastolic 80 mmHg Heart Rate 72 /min Height 70 inches 5'10 Weight 218.38 lb BMI (Body Mass Index) 31.3 kg/m2 Results Test Acquired Date Facility Test Result H/L Range N ote Hemoglobin A1c 03/07/2025 Inhouse Hemoglobin A1c 5.9 Glucose Fingerstick 03/07/2025 Inhouse Glucose Fingerstick 149 Glucose Fingerstick 10/19/2024 Inhouse Glucose Fingerstick 134 Hemoglobin A1c 10/19/2024 Inhouse Hemoglobin A1c 6.2 Glucose Fingerstick 06/01/2024 Inhouse Glucose Fingerstick 129 Hemoglobin A1c 06/01/2024 Inhouse Hemoglobin A1c 5.5% Glucose Fingerstick 02/24/2024 Inhouse Glucose Fingerstick 113 [...] Glucose Fingerstick 01/22/2022 Inhouse Glucose Fingerstick 107 Procedures Date Code Description Status 10/18/2024 NSHOWOFF No Show Office Visit Complet ed Medical Devices Description No Information Available Encounters Type Date Location Provider Dx Diagnosis Office Visit 10/19/2024 9:30a Main Office Chucky Kingsley M.D. E11.8 Type 2 diabetes mellitus with unspecified complications Assessments Date Code Description Provider 03/07/2025 E11.8 Type 2 diabetes mellitus with unspecified complications Chucky Kingsley M.D. Plan of Treatment Future Appointment(s):* 07/09/2025 8:45 am - Chucky Kingsley M.D. at Main Office 03/07/2025 - Chucky Kingsley M.D.* E11.8 Type 2 diabetes mellitus with unspecified complications Functional Status Description No Information Available Mental Status Description No Information Available Referrals Description No Information Available
--- OUTSIDE RECORDS SUMMARY | 2025-03-21 10:30 | XMS_ITS | Encounter Summary ---
Author Organization [facility] Address [address] [place] [address] Phone Care Team Providers Care Physician Ophthalmologist Name Role Phone Colin Morgan DO Primary Care Provider Encounter Details Date Type Department Care Team (Late st Contact Info) Description 09/20/2018 Procedure Pass [facility] Endoscopy Admitting Dept Virtual Department [address] [place] [id number] Social History Tobacco Use Types Packs/Day Years Used Date Smoking Tobacco: Every Day Cigars Smokeless Tobacco: Never Comments:one or two per day Alcohol Use Standard Drinks/Week Comments Yes 5 (1 standard drink = 0.6 oz pur e alcohol) Sex and Gender Information Value Date Recorded Sex Assigned at Not on file Legal Sex Male 10:04 PM EDT Gender Identity Not on file Sexual Orientation Not on file documented as of this encounter Plan of Treatment Not on file documented as of this encounter Visit Diagnoses Not on filedocumented in this encounter Care Teams Physician Ophthalmologist Relationship Specialty Start Date End Date Colin Morgan DO [address] [place] [address] PCP - General Family Medicine 09/09/18 documented as of this encounter Additional Source Comments The information contained in this document represents components of the legal health record. It is not the complete legal health record.[facility]
--- OUTSIDE RECORDS SUMMARY | 2025-03-21 10:30 | XMS_ITS | Clinical Summary ---
Author Organization [facility] Address [address] [place] [place] [address] Phone Care Team Providers Care Distribution Estimator Name Role Phone Lizbeth Rivers MD Primary [...] of 2 - PCV) 07/23/1967 Influenza Vaccine (#1) 2024 Colorectal Cancer Screening: Colonoscopy Discontinued 09/20/2018 Hepatitis B Vaccine Aged Out No longe r eligible based on patient's age to complete this topic Insurance [facility] Medicare Care Teams Distribution Estimator Relationship Specialty Start Date End Date Lizbeth Rivers MD [facility] PCP - General Internal Medicine 02/25/22
--- OUTSIDE RECORDS SUMMARY | 2025-03-21 10:30 | XMS_ITS | Clinical Summary ---
Author Organization [facility] Address [address] [place] [id number] Phone Care Team Providers Care Supervisor Labor Gang Name Role Phone Cathy Colin Garcia DO Primary Care Provider Allergies No known active allergies Medications insulin glargine (LANTUS, BASAGLAR) 100 unit/mL (3 mL) InPn injection pen Active fenofibrate (LOFIBRA) 54 MG tablet Take 54 mg by mouth daily. Active sildenafil (VIAGRA) 100 mg tablet Take 100 mg by mouth daily as needed for erectile dysfunction. Active atorvastatin (LIPITOR) 10 MG tablet Take 10 mg by mouth daily. Active metoprolol tartrate (LOPRESSOR) 50 MG tablet Take 50 mg by mouth 2 (two) times a day. Active losartan (COZAAR) 25 MG tablet Take 25 mg by mouth daily. Active clonazePAM (KLONOPIN) 0.5 MG tablet Take 0.5 mg by mouth 2 (two) times a day as needed for anxiety. Active amLODIPine (NORVASC) 10 MG tablet Take 10 mg by mouth daily. Active glipiZIDE (GLUCOTROL) 2.5 MG 24 hr tablet Take 2.5 mg by mouth daily. Active multivitamins-m inerals-folic bnvj-rgvwzxn-pf tein (COMPLETE SENIOR) 0.4-300-250 mg-mcg-mcg Tab Take 1 tablet by mouth daily. Active pioglitazone (ACTOS) 15 MG tablet Take 15 mg by mouth daily. Active Social History Tobacco Use Types Packs/Day Years Used Date Smoking Tobacco: Every Day Cigars Smokeless Tobacco: Never Comments:one or two per day Alcohol Use Standard Drinks/Week Comments Yes 5 (1 standard drink = 0.6 oz pur e alcohol) Education Answer Date Recorded Are you interested in more education? Not on pedro e 08/21/2022 Are you concerned about learning? Not on file 08/21/2022 No 08/21/2022 No 08/21/2022 Digital Access Answer Date Recorded No 09/19/2022 No 09/19/2022 No 09/19/2022 Reliable internet access at home? Not on file 09/19/2022 Device with a working camera? Not on file Sex and Gender Information Value Date Recorded Sex Assigned at Not on file Legal Sex Male 10:04 PM EDT Gender Identity Not on file Sexual Orientation Not on file Last Filed Vital Signs Vital Sign Reading Time Taken Comments Blood Pressure 132/69 09/20/2018 12:43 PM EDT Pulse 60 09/20/2018 11:56 AM EDT Temperature 36 C (96.8 F) 09/20/2018 12:33 PM EDT Respiratory Rate 20 09/20/2018 12:43 PM EDT Oxygen Saturation 98% 09/20/2018 12:43 PM EDT Inhaled Oxygen Concentration - - Weight 126.1 kg (278 lb) 09/20/2018 11:56 AM EDT Height 177.8 cm (5' 10 ) 09/20/2018 11:56 AM EDT Body Mass Index 39.89 09/20/2018 11:56 AM EDT Plan of Treatment Health Maintenance Due Date Last Done Comments Adult Td,Tdap Booster 1948 CREATININE LEVEL 1948 LIPID PANEL 1948 POTASSIUM LEVEL 1948 DEPRESSION SCREENING 1960 SMOKING Hx and SMOKELESS TOBACCO SCREENING 1961 HEPATITIS C SCREENING 1966 ZOSTER VACCINES (2 of 2) 12/24/2020 10/29/2020 RSV VACCINE (1 - 1-dose 75+ series) 07/23/2023 INFLUENZA VACCINE (#1) 2024 6, 03/06/2015, 01/22/2014, Additional history exists COVID-19 VACCINE (2 - 2024- season) 2024 10/31/2020 PNEUMOCOCCAL VACCINES (50+ years) Completed 02/18/2016, 03/06/2015 HEPATITIS A VACCINES Aged Out No long er eligible based on patient's age to complete this topic HIB VACCINES Aged Out No longer eligi ble based on patient's age to complete this topic MENINGOCOCCAL VACCINES (ACWY) Aged Out No longer eligible based on patient's age to complete this topic MENINGOCOCCAL VACCINES (B) Aged Out N o longer eligible based on patient's age to complete this topic Medical Devices Not on file Insurance MEDICARE REPLACEMENT MEDICARE REPLACEMENT MEDICARE REPLACEMENT MEDICARE REPLACEMENT MEDICARE REPLACEMENT MEDICARE REPLACEMENT MEDICARE REPLACEMENT MEDICARE REPLACEMENT MEDICARE REPLACEMENT Care Teams Supervisor Labor Gang Relationship Specialty Start Date End Date Colin Morgan DO [address] [place] [address] PCP - General Family Medicine 09/09/18 Additional Source Comments The information contained in this document represents components of the legal health record. It is not the complete legal health record.[facility]
--- OUTSIDE RECORDS SUMMARY | 2025-03-21 10:30 | XMS_ITS | Clinical Summary ---
Author Organization [facility] Address [facility] [place] [address] Care Team Providers Care Power Switchboard Operator Name Role Phone Colin Morgan Primary Care Provider [phone] Allergies No known active allergies Medications amLODIPine (NORVASC) 10 mg Tablet 09/07/2017 Active [...] at Not on file Legal Sex Male 11:00 AM EDT Gender Identity Not on file Sexual Orientation Not on file Last Filed Vital Signs Vital Sign Reading Time Taken Comments Blood Pressure 126/80 12/15/2017 8:26 AM EDT Pulse 59 12/15/2017 8:26 AM EDT Temperature 36.6 C (97.8 F) 11/26/2017 5:01 PM EDT Respiratory Rate - - Oxygen Saturation 99% 12/15/2017 8:26 AM EDT Inhaled Oxygen Concentration - - Weight 119.3 kg (263 lb) 11/26/2017 5:01 PM EDT Height 177.8 cm (5' 10 ) 11/26/2017 5:01 PM EDT Body Mass Index 37.74 11/26/2017 5:01 PM EDT Plan of Treatment Health Maintenance Due Date Last Done Comments Hepatitis C Screening 1966 Tetanus/Diphtheria/Pertussis Vaccines (1 - Tdap) 07/22 Pneumoccocal Vaccine: 50+ (1 of 1 - PCV) 1998 Zoster vaccine (1 of 2) 1998 Advance Directive 07/23/2003 RSV Vaccine (1 - 1-dose 75+ series) 07/23/2023 Covid-19 Vaccine (1 - 2024- season) 2024 Influenza (Flu) vaccine (1 o f 1 - Influenza standard series) 12/25/2024 Insurance [facility] MANAGED MEDICARE Care Teams Power Switchboard Operator Relationship Specialty Start Date End Date Colin Morgan DO [address] [place] [address] PCP - General Family Medicine 11/26/17
== END 2025-03-21 10:06 | disposition home or self-care (01) ==
LOC: HO.HKA 09:26
PROVIDERS: PCP Internal Medicine; Visit Provider Internal Medicine Nephrology
DX: N18.31 Chronic kidney disease, stage 3a (principal); I10 Essential (primary) hypertension
CPT/HCPCS: 99214

== ENCOUNTER → 2025-03-21 09:25 | Outpatient (BNVA) | payer MEDICARE, SELFPAY | PROVIDERS: PCP Internal Medicine; Visit Provider Internal Medicine Nephrology | DX: I12.9 Hypertensive chronic kidney disease with stage 1 through stage 4 chronic kidney disease, or unspecified chronic kidney disease (principal); E11.22 Type 2 diabetes mellitus with diabetic chronic kidney disease; F17.210 Nicotine dependence, cigarettes, uncomplicated; N18.31 Chronic kidney disease, stage 3a; Z79.4 Long term (current) use of insulin; Z79.85 Long-term (current) use of injectable non-insulin antidiabetic drugs | CPT/HCPCS: 99212 ==